=== PATIENT | female | born 1980 | race Caucasian/White ===

== ENCOUNTER 2018-05-18 09:50 | Inpatient (IN) | payer OTHER ==
[~2018-05-18] VITALS: Ht 172.7 cm; Wt 108.0 kg
[~2018-05-18 09:50] MED LIST: HUMIRA INJ
[2018-05-18 13:19] VITALS: BP 108/58; PULSE 66; TEMP 36.5; O2SAT 94
[2018-05-18 13:42] VITALS: BP 108/58; PULSE 66; TEMP 36.5; BMI 36.2
--- NOTE | 2018-05-18 14:03 | History and Physical ---
History & Physical Date & Time of Service: May 18, 2018 at 14:00 Chief Complaint: Pneumonia Primary Care Physician: Reji Galicia M.D. History of Present Illness This is a 37 yo female with PMH [facility], who presented to the ED complaining of persistent fever, cough, body aches. The px states on 5thm she went to [facility]. She was staying at one of the [facility]. While she was there she went to the [facility] and [facility]. She denies visiting caves, or any sick contacts. The patient states that on she began feeling ill., On Monday, she returned to [place]. Once she arivd home she had a temp of 104 degrees Fahrenheit. This was accompanied by body aches and a cough. She also noticed a fever blister on her lip. She went to an urgent care and was prescribed levaquin which she took 4 days worth with no improvement. Patient denies any tick bites. Patient continued to have body aches, sweats, fever, lower back pain and decided to go to the Hospital in [facility]. The she was started on Rocephin and Azithromycin in the ED. Patient was then admitted with vanc kinjal and corey. As they found left hilar lymphadenopathy. Patient is also on immunosuppressant Stelara for her Crohn's. Patient was transferred to [facility] for a possible bronch. Past Medical/Surgical History PAST MEDICAL HISTORY: 1. Active cigarette smoking. 2. Crohn's disease. 3. Morbid obesity 4. Questionable Lupus 5. "Apple core lesion" of right colon - apparently benign. PAST SURGICAL HISTORY: 1. Gastric Sleeve 2. Colon resection 3. A0. 4. Right knee arthrotomy with ACL / MCL repair. 5. T & A Family History The patient has one 13-year-old son with cerebral palsy, ADHD and autism. Her father in his mid 50's from CAD and an AK. Mother is 69 with DM and obesity. Two siblings are obese with DM. Social History Smoking Status: Former Smoker (quick 3 years ago) Smokeless Tobacco Use: No Alcohol Use: socially Drug Use: none Marital Status: Housing status: lives with family Occupational Status: unemployed Immunizations History of Influenza Vaccine: Unknown History of Tetanus Vaccine?: Unknown History of Pneumococcal: Unknown Allergies Coded Allergies: No Known Allergies (Unverified , 07/15/11) Home Medications Scheduled [Humira], 40 MG INJ EVERY OTHER WEEK Review of Systems Constitutional: + fever, + chills Eyes: No worsening of vision ENT: No hearing loss Respiratory: + cough, + shortness of breath, + dyspnea on exertion, + dyspnea at rest Cardiovascular: No chest pain Abdomen: No pain, No nausea Musculoskeletal: + muscle pain Genitourinary - Female: No dysuria Neurologic: No memory loss Psychiatric: No depression symptoms Endocrine: + fatigue Hematologic / Lymphatic: No abnormal bleeding/bruising Integumentary: No rash Allergic / Immunologic: No environmental allergies Physical Exam Vital Signs Date Time Temp Pulse Resp B/P (MAP) Pulse Ox O2 Delivery O2 Flow Rate FiO2 05/18/18 13:19 36.5 66 17 108/58 (75) 94 Room Air General Appearance: WD/WN, no apparent distress Head: normocephalic Eyes: normal inspection ENT: normal ENT inspection Neck: supple, no adenopathy Respiratory/Chest: chest non-tender, + accessory muscle use, + rhonchi (on right more than left.) Cardiovascular: regular rate, rhythm, no edema, no murmur Abdomen/GI: normal bowel sounds, non tender, soft Back: normal inspection Extremities/Musculoskelatal: normal inspection, no calf tenderness Neurologic/Psych: alert, oriented x 3 Skin: normal color Lymphatic: no adenopathy Impression Assessment and Plan Dypsnea and persistent fevers in a 37 yo female who failed outaptient treatment on levaquin, h/o immunosuprresnat likely secondary to Pneumonia Direct admission to med/surg for atypical community acquired pneumonia. Patient placed on triple antibiotic therapy. Vanco zosyn doxycycline Patient will have a bronch likely tomorrow or Monday. Patient does not appear to be in significant distress. Patient is admitted with precautions for TB. However, this appears unlikely Awaiting PPD results. Placed on 05/17/18 Ordered histoplasma antibodies, antibodies for coccidioidomycosis. Will call outside facility early next week for results as they are not out yet. will obtain random vanco level/ Consulted Dr. Schaefer who accepted patient for bronch. Awaiting consult. Blister on lip: Likely herpes labialis Placed on valacyclovir. h/o crohns disease on stelara h/o back pain On morphine and dilaudid. H/O SMOKING: dvt PROPH: hEPARIN. Advanced Directives Existing Advance Directive: No Existing Living Will: No Existing Power of Dressage Judge: No Existing Health Care Proxy: No Resuscitation Status VTE Prophylaxis Will order VTE Prophylaxis: Yes
[2018-05-18] MEDS ORDERED: VANCOMYCIN CONSULT ACTIVE PRN (14:15)
[2018-05-18] MEDS ORDERED: ACETAMINOPHEN 325 MG TAB PO PRN (14:15)
[2018-05-18] MEDS ORDERED: PATIENT'S HEIGHT AND/OR WEIGHT NEEDED SCH (14:20)
[2018-05-18] MEDS ORDERED: PIPERACILL/TAZOBAC IV 4.5 GM in D5W 100 ML IV STA (14:26)
[2018-05-18] MEDS ORDERED: PIPERACILL/TAZOBAC CONSULT ACTIVE PRN (14:30)
[2018-05-18 14:39] LABS: BASO % 0.1 %; BASO ABS # 0.01 K/uL (0-0.2); EOS ABS # 0.15 K/uL (0-0.5); HEMOGLOBIN 11.5 g/dL (12.0-16.0); IG# 0.14 K/uL (0.00-0.02); LYMPH % 17.6 %; LYMPH ABS # 1.31 K/uL (1.2-3.4); MEAN CELL VOLUME 84.7 fL (80-100); MEAN CORPUSCULAR HEMOGLOBIN 27.8 pg (25-34); MEAN CORPUSCULAR HGB CONC 32.9 g/dl (32-36); MEAN PLATELET VOLUME 8.9 fL (7.4-10.4); MONO % 5.8 %; MONO ABS # 0.43 K/uL (0.11-0.59); NEUT % 72.6 %; NEUT ABS # 5.39 K/uL (1.4-6.5); PLATELET COUNT 401 K/uL (130-400); RED CELL DISTRIBUTION WIDTH CV 16.2 % (11.5-14.5); RED CELL DISTRIBUTION WIDTH SD 50.1 fL (36.4-46.3); WHITE BLOOD COUNT 7.43 K/uL (4.8-10.8)
[2018-05-18 14:40] VITALS: BP 111/73; PULSE 58; TEMP 37.3; O2SAT 97
[2018-05-18] MEDS ORDERED: DOXYCYCLINE HYCLATE 100 MG CAP PO SCH (15:00)
[2018-05-18 15:22] LABS: ALBUMIN 2.3 gm/dl (3.4-5.0); CALCIUM 8.4 mg/dl (8.5-10.1); CREATININE 0.76 mg/dl (0.60-1.20); POTASSIUM 3.9 mmol/L (3.5-5.1); TOTAL PROTEIN 6.2 gm/dl (6.4-8.2)
[2018-05-18] MEDS ORDERED: VANCOMYCIN IV 2,000 MG in SODIUM CHLORIDE 0.9% 500ML 500 ML IV STA (15:23)
[2018-05-18] MEDS ORDERED: MoRPHine SULFATE CR 15 MG TAB (MS CONTIN) PO STA (15:26)
[2018-05-18] MEDS: DOXYCYCLINE HYCLATE 100 MG in DEXTROSE 5% 100ML IV SCH ×2 (15:27→21:31)
--- NOTE | 2018-05-18 15:37 | Pharmacy Progress Note ---
Pharmacy Abx Dose Short Note Date of Service May 18, 2018. Assessment & Plan A/P Direct admit from [facility]. Random vanco lvl 4.9mcg/mL. Will give a modified loading dose (2000mg IV X1 18.5mg/kg) due to habitus and existing vanco in the serum. Then start Vanco 1500mg (14mg/kg) q8 set to start @00 05/19. MRSA nares and PCT all ordered. Trough prior to Css ordered for 05/19@1530. Goal trough for pulmonary source 15-20mcg/mL Zosyn, appropriately dosed based on habitus and eCrCl>20cc/min Pharmacy will continue to follow and will adjust dose/frequency as necessary. Thank you.
[2018-05-18] MEDS ORDERED: NURSING VERBAL MED ORDER ONE (18:45)
[2018-05-18] MEDS: PIPERACILL/TAZOBAC IV 4.5 GM in D5W 100 ML IV SCH (19:51)
[2018-05-18] MEDS: PANTOprazole SOD 40 MG TAB PO SCH (19:55)
[2018-05-18] MEDS ORDERED: VANCOMYCIN IV 1,000 MG in SODIUM CHLORIDE 0.9% 250ML 250 ML IV SCH (21:00)
[2018-05-18] MEDS: MoRPHine SULFATE CR 15 MG TAB (MS CONTIN) PO SCH (21:24)
[2018-05-18] MEDS: HEPARIN SOD 5000 UNIT/0.5 ML CARP SQ SCH (21:26)
[2018-05-18] MEDS: ZOLPIDEM TARTRATE 10 MG TAB PO PRN (22:42)
--- NOTE | 2018-05-18 23:25 | SURGICAL CONSULTATION ---
DATE OF CONSULTATION: 05/18/2018 REASON FOR CONSULTATION: Mediastinal and hilar adenopathy and a left lower lobe pneumonia. HISTORY OF PRESENT ILLNESS: Marcela Dickerson is a 37-year-old female who smokes a pack of cigarettes a day who has a history of Crohn's disease. She is currently on Stelara. She was in [place] for about a week and started getting sick at the end of her stay. She was staying in a hotel. When she came back, she felt bad and had a cough and went to an urgent care and was placed on Levaquin and she was on Levaquin for about 5 days. She did not get better and was admitted to [facility] yesterday and I received a call from the hospitalist there as they were concerned about this patient, especially with her CT findings. Dr. Baudilio Noble kindly agreed to accept her in transfer. I am seeing her tonight after getting out of the operating room. The patient's was present at bedside. The patient has been smoking for most of her adult life, although she states she has quit for 3 years one time. She states that she feels much better today than she has felt in a few days. She denies sweats today. She does have a cough. Her weight has been stable. PAST MEDICAL HISTORY: 1. Active cigarette smoking. 2. Crohn's disease. 3. Morbid obesity 4. Questionable Lupus 5. "Apple core lesion" of right colon - apparently benign. PAST SURGICAL HISTORY: 1. Gastric Sleeve 2. Colon resection 3. A0. 4. Right knee arthrotomy with ACL / MCL repair. 5. T & A MEDICATIONS: 1. Ambien. 2. Protonix. 3. Humira ALLERGIES: No drug allergies. FAMILY MEDICAL HISTORY: The patient has one 13-year-old son with cerebral palsy , ADHD and autism. Her father in his mid 50's from CAD and an [place]. Mother is 69 with DM and obesity. Two siblings are obese with DM. REVIEW OF SYSTEMS: The patient states she was in her normal state of health until the last few days as listed in history of present illness. She is quite hungry and is eating now. She has had no GI or issues. She denies any visual or auditory symptoms. She has had no skin breakdown. She denies midsternal chest pain but she does have some lateral left-sided chest pain, which sounds pleuritic in nature, although it is mild. She has had no neurologic events such as amaurosis fugax, transient ischemic attacks. She has had no seizures. PHYSICAL EXAMINATION: GENERAL: This is a well-developed, well-nourished, healthy-appearing female who stands 5 feet 8 inches tall and weighs 238 pounds. HEENT: Her extraocular movements are intact. Pupils are equal, round, and reactive. Sclerae are pale but anicteric. She has no nasolabial flattening. Her tongue is midline. She has no oral mucosal lesions. NECK: Supple. I do not detect any supraclavicular, cervical, or axillary adenopathy. She has some mild end expiratory wheezing, worse on the right than the left and has rhonchi, which I think are actually worse on the right than the left. She has a few rales in the left base. HEART: She has a regular rate and rhythm of her heart does not have a rub or murmur. ABDOMEN: Soft, nontender. EXTREMITIES: She has good peripheral pulses. No peripheral edema. No joint effusions. NEUROLOGIC: She is intact. DATA: Her electrolytes looked quite good. Her albumin is down to 2.3. Her procalcitonin is 0.51, which is just above high normal. Her white count is only 7430 with hemoglobin of 11.5. I reviewed her CT scan, it is impressive. She has marked adenopathy, which does not appear to be simply reactive. In addition, she has a dense infiltrate in her left lower lobe. She has a very small left pleural effusion. She also has a few very small areas of infiltrates at the right lung. ASSESSMENT AND PLAN: Right lower lobe pneumonia in a patient who was immunocompromised secondary to medication. Her visit to [place] is a bit concerning. She has been covered for atypical bacteria; however, I believe I would have infectious disease see this patient. I am going to see how she looks over the weekend and I may offer her an endobronchial ultrasound with a bronchoscopy on Monday. [facility]OSPITALMickey
[2018-05-18] MEDS: VANCOMYCIN IV 1,500 MG in SODIUM CHLORIDE 0.9% 500ML 500 ML IV SCH (23:35)
[2018-05-18 23:47] VITALS: O2SAT 97
[2018-05-18 23:59] VITALS: BP 111/77; PULSE 59; TEMP 37.1; O2SAT 95
[2018-05-19] MEDS: PIPERACILL/TAZOBAC IV 4.5 GM in D5W 100 ML IV SCH ×3 (03:55→20:38)
[2018-05-19] MEDS: HEPARIN SOD 5000 UNIT/0.5 ML CARP SQ SCH ×3 (06:00→21:57)
[2018-05-19 07:12] VITALS: BP 115/76; PULSE 64; TEMP 37; O2SAT 92
[2018-05-19 07:47] LABS: CREATININE 0.91 mg/dl (0.60-1.20)
[2018-05-19] MEDS: PANTOprazole SOD 40 MG TAB PO SCH ×2 (08:44→20:38)
[2018-05-19] MEDS: MoRPHine SULFATE CR 15 MG TAB (MS CONTIN) PO SCH ×2 (08:44→20:38)
[2018-05-19] MEDS: SERTRALINE HCL 100 MG TAB PO SCH (08:44)
[2018-05-19] MEDS: VANCOMYCIN IV 1,500 MG in SODIUM CHLORIDE 0.9% 500ML 500 ML IV SCH ×3 (08:45→21:52)
[2018-05-19] MEDS: DOXYCYCLINE HYCLATE 100 MG in DEXTROSE 5% 100ML IV SCH ×2 (10:17→21:52)
[2018-05-19 10:18] VITALS: Ht 172.7 cm; Wt 108.0 kg
--- NOTE | 2018-05-19 10:37 | SURGERY PROGRESS NOTE ---
DATE: 05/19/2018 Ms. Dickerson was seen today on 05/19/2018. She is a 37-year-old female who takes Humira for her Crohn's disease. She recently had trip to [place] and came back with a significant pneumonia. What concerns me more is the size of the lymph nodes in her chest. I do not think these are purely reactive nodes, especially in the subcarinal area. I believe that a fiberoptic bronchoscopy as well as an endobronchial ultrasound with biopsy is in order. Clinically, she has improved over the last 48 hours. She is coughing, but not much. She has had no hemoptysis. She is hungry. She has no problems with her appetite. Overall, she is in good spirits and feels that she has improved. We had a long talk with the endobronchial ultrasound and a regular bronchoscopy, which we will do under anesthesia on 05/21/2018.
[2018-05-19] MEDS: HYDROmorphone HCL 2 MG TAB PO PRN (13:39)
[2018-05-19 15:28] VITALS: BP 113/78; PULSE 60; TEMP 37.2; O2SAT 96
[2018-05-19] MEDS ORDERED: VANCOMYCIN TROUGH ONE (15:30)
--- NOTE | 2018-05-19 16:29 | Pharmacy Progress Note ---
Pharmacy Antibiotic Prog Note Date of Service May 19, 2018. Subjective The patient is currently receiving vancomycin 1500 mg iv q 8 hours. The patient is currently on day # 2 of IV therapy Objective Height (Feet): 5 Height (Inches): 8.00 Weight (Kilograms): 108.000 Levels: Item Value Date Time Vancomycin Level Trough 26.5 mcg/ml 05/19/18 1508 Lab Results (24hrs): Test 05/19/18 06:28 05/19/18 15:08 Creatinine 0.91 mg/dl (0.60-1.20) Est Creatinine Clear Calc Drug Dose 106.8 ml/min Estimated GFR () 92.1 Estimated GFR (Non- 79.5 Procalcitonin 0.43 ng/ml (0-0.5) Vancomycin Level Trough 26.5 mcg/ml (SEE COMMENT) Assessment & Plan Patient currently on vancomycin for possible pneumonia. Transferred from outside hospital. ID is consulted to follow the patient. Plan for possible bronch on Monday. Vancomycin: * Trough level this afternoon came back supratherapeutic at ~26 mcg/ml (goal 15- 20 mcg/ml for pneumonia) * Notified nurse to take down 1600 dose (had only been running for a couple mins ) * Will adjust to vancomycin 1500 mg iv q 12 hrs to target a lower trough ~15-20 mcg/ml * Will plan to restart vancomycin for later this evening when estimated level closer to ~15 mcg/ml * Estimated kinetics based upon level: t1/2~9 hrs, ke~0.08 hr-1, CrCl ~106 Zosyn: * 4.5 gm iv q 8 hrs - no change needed (CrCl >20 ml/min, BMI >35 kg/m2) Pharmacy will continue to follow and will adjust dose/frequency as necessary. Thank you. Pharmacy will continue to follow and will adjust dose/frequency as necessary. Thank you
[2018-05-19] MEDS ORDERED: FLUCONAZOLE 50 MG TAB PO ONE (17:30)
[2018-05-19] MEDS: ZOLPIDEM TARTRATE 10 MG TAB PO PRN (22:42)
[2018-05-19 22:44] VITALS: BP 124/82; PULSE 62; TEMP 36.7; O2SAT 99
--- NOTE | 2018-05-19 22:57 | Progress Note ---
Subjective Date of Service: May 19, 2018. Subjective Pt evaluation today including: conversation w/ patient, physical exam 37 yo female reports feeling better today as compared to yesterday. Patient reports she has been coughing up sputum and she states it feels like her lungs are breaking up mucus. Patient knows that she is scheduled for a bronch on Monday. Patient also complains of vaginal pruritus which started today. Review of Systems Constitutional: No fever Eyes: No worsening of vision ENT: No hearing loss Respiratory: + cough, + sputum Cardiac: No chest pain Abdomen: No pain Musculoskeletal: No joint pain Neurologic: No memory loss Psychiatric: No depression symptoms Heme: No abnormal bleeding/bruising Endo: + fatigue Skin: No rash All Other Systems: Reviewed and Negative Objective Vital Signs Date Time Temp Pulse Resp B/P (MAP) Pulse Ox O2 Delivery O2 Flow Rate FiO2 05/19/18 22:44 36.7 62 18 124/82 (96) 99 Room Air 05/19/18 16:00 Room Air 05/19/18 15:28 37.2 60 18 113/78 (90) 96 Room Air 05/19/18 08:30 Room Air 05/19/18 07:12 37.0 64 16 115/76 (89) 92 05/18/18 23:59 37.1 59 18 111/77 (88) 95 Room Air 05/18/18 23:47 97 Room Air Physical Exam Comments: General Appearance: WD/WN, no apparent distress Head: normocephalic Eyes: normal inspection ENT: normal ENT inspection Neck: supple, no adenopathy Respiratory/Chest: chest non-tender, + accessory muscle use, + rhonchi (on right more than left.) Cardiovascular: regular rate, rhythm, no edema, no murmur Abdomen/GI: normal bowel sounds, non tender, soft Back: normal inspection Extremities/Musculoskelatal: normal inspection, no calf tenderness Neurologic/Psych: alert, oriented x 3 Skin: normal color Lymphatic: no adenopathy Laboratory Results Last 24 Hours Test 05/19/18 06:28 05/19/18 15:08 Creatinine 0.91 mg/dl Est Creatinine Clear Calc Drug Dose 106.8 ml/min Estimated GFR () 92.1 Estimated GFR (Non- 79.5 Procalcitonin 0.43 ng/ml Vancomycin Level Trough 26.5 mcg/ml Assessment and Plan Dyspnea and persistent fevers in a 37 yo female who failed outaptient treatment on levaquin, h/o immunosuprresnat likely secondary to Pneumonia Direct admission to med/surg for atypical community acquired pneumonia. Patient clinically looks better, lungs still sound coarse. Patient placed on triple antibiotic therapy. Vanco zosyn doxycycline (day 3) started by outside facility Patient will have a bronch likely tomorrow or Monday. Patient does not appear to be in significant distress. Patient is admitted with precautions for TB. However, this appears unlikely Awaiting PPD results, so far it is negative. If remains negative tomorrow will stop airborne precautions. Placed on 05/17/18 Ordered histoplasma antibodies, antibodies for coccidioidomycosis. Will call outside facility early next week for results as they are not out yet. Bronch scheduled for monday. Chest Lymphadenopathy noted on imaging will need to obtain biopsies Blister on lip: Likely herpes labialis Placed on valacyclovir. h/o crohns disease on stelara h/o back pain On morphine and dilaudid. H/O SMOKING: quit years ago. Vaginal pruritus ordered one dose of fluconazole 150 mg likely secondary to antibiotic use. Continued [facility] stay due to: multiple IV medications needed Discharge planning: home
[2018-05-20] VITALS (8 sets, daily range): BP systolic 103–119; BP diastolic 62–80; PULSE 54–84; TEMP 36.7–37.1; O2SAT 96–99
[2018-05-20] MEDS: PIPERACILL/TAZOBAC IV 4.5 GM in D5W 100 ML IV SCH ×3 (05:07→20:03)
[2018-05-20] MEDS: HEPARIN SOD 5000 UNIT/0.5 ML CARP SQ SCH ×4 (06:19→21:53)
--- NOTE | 2018-05-20 07:49 | Progress Note ---
Progress Note Date of Service May 20, 2018. Progress Note ID Consult Dictated #[id number] A/P: 1. Pna/lymphadenopathy -Continue IV abx for now -For bronch in am, please obtain routine, fungal, AFB -IGRA negative as outpt, ppd 0mm induration this am, can d/c airborne isolation -Will follow, thank you
[2018-05-20 07:52] LABS: CREATININE 0.88 mg/dl (0.60-1.20)
--- NOTE | 2018-05-20 08:05 | INFECT. DISEASE CONSULTATION ---
DATE OF CONSULTATION: 05/20/2018 HISTORY OF PRESENT ILLNESS: This is a 37-year-old female who was admitted to the hospital after she had worsening cough with occasional hemoptysis. She was recently seen at an urgent care center and she was given a course of Levaquin. She completed 5 days of this, but she did not feel any better. She initially presented to [facility] where she underwent a CAT scan, which per the patient showed lymphadenopathy. She was subsequently transferred due to immunosuppression as she is on Stelara for Crohn's disease. This is managed in [place]. She did have an interferon prior to starting Stelara, and this was negative. She also had a PPD placed here 3 days ago, and it is measured by me today and is 0 mm in duration. She was placed in airborne precautions, no additional TB workup was obtained here. She states that her cough is better. She denies any pleuritic chest pain. She denies ever having any fevers or chills associated with this. Of note, she had previously been in [place] and started to feel ill toward the end of her trip there. She denies any abdominal pain, nausea, vomiting, or diarrhea. She states her Crohn's is under a relatively good control. Her remaining review of systems is reviewed and unremarkable. PAST MEDICAL HISTORY: Significant for Crohn's disease, on Stelara, obesity, history of positive JENNIFER 15 years ago with no additional workup for lupus. PAST SURGICAL HISTORY: Significant for gastric sleeve, colon resection, right knee surgery, tonsillectomy, adenoidectomy. ALLERGIES: She has no known allergies. FAMILY HISTORY: Noncontributory. SOCIAL HISTORY: Significant for daily cigarette use for several years. She denies any alcohol or drug use. She recently had traveled to [place]. PHYSICAL EXAMINATION: VITAL SIGNS: She is afebrile, pulse 54, respiratory rate 18, blood pressure 119/80, oxygen saturation is 96% on room air. GENERAL: She is awake, alert, and oriented x3. She is in no acute distress. HEENT: Mucous membranes are moist. Extraocular muscles are intact. CARDIOVASCULAR: Heart is regular. RESPIRATORY: Lungs are clear bilaterally. GASTROINTESTINAL: Abdomen is soft, nontender, and nondistended. EXTREMITIES: There is no lower extremity edema. SKIN: Without rash. CURRENT MEDICATIONS: Vancomycin, Zoloft, subcu heparin, morphine, Valtrex, Protonix, Zosyn, Ambien, doxycycline, Dilaudid, Tylenol. She is noted to have herpetic lesions on the upper lip which are nontender. LABORATORY STUDIES: CBC: On the 05/18/2018, white blood cell count 7.4, hemoglobin 11.5, platelets 401. Chemistry panel: Sodium 143, potassium 3.9, chloride 109, bicarbonate 25, BUN 10, creatinine 0.7, glucose 78. LFTs are within normal limits. A procalcitonin is negative. MICROBIOLOGY: There are no cultures to review here. IMAGING: There is no imaging to review here. ASSESSMENT AND PLAN: Pneumonia and lymphadenopathy, on anti-Crohn's medication. She does not have any risk factors for TB, and she had a negative PPD here and also had a negative interferon. Her airborne precautions can be removed. She is scheduled for bronchoscopy tomorrow. Please obtain routine fungal and AFB cultures. We will follow along with you. Thank you for this consultation.
[2018-05-20] MEDS: PANTOprazole SOD 40 MG TAB PO SCH ×2 (08:49→20:06)
[2018-05-20] MEDS: SERTRALINE HCL 100 MG TAB PO SCH (08:49)
[2018-05-20] MEDS: MoRPHine SULFATE CR 15 MG TAB (MS CONTIN) PO SCH ×2 (08:52→20:11)
[2018-05-20] MEDS: DOXYCYCLINE HYCLATE 100 MG in DEXTROSE 5% 100ML IV SCH ×2 (09:50→21:52)
[2018-05-20] MEDS: VANCOMYCIN IV 1,500 MG in SODIUM CHLORIDE 0.9% 500ML 500 ML IV SCH ×2 (09:50→21:52)
--- NOTE | 2018-05-20 10:23 | SURGERY PROGRESS NOTE ---
DATE: 05/20/2018 Ms. Dickerson was seen today on 05/20/2018. She is better but still coughing. Dr. Bangura has seen her and is in agreement with the bronchoscopy tomorrow. We are going to proceed with endobronchial ultrasound with biopsy and a fiberoptic bronchoscopy tomorrow. She and I had a long discussion about the risks and benefits and she is eager to have this done. I have asked Dr. Bassett to see her from a pulmonary standpoint.
[2018-05-20] MEDS: ALBUT/IPRATROP 3MG/0.5MG NEB 3 ML VIAL INH SCH ×3 (11:38→18:53)
[2018-05-20] MEDS: HYDROmorphone HCL 2 MG TAB PO PRN (12:44)
[2018-05-20] MEDS ORDERED: NURSING VERBAL MED ORDER ONE (13:15)
[2018-05-20] MEDS ORDERED: FLUCONAZOLE 50 MG TAB PO ONE (14:30)
--- NOTE | 2018-05-20 21:48 | Progress Note ---
Subjective Date of Service: May 20, 2018. Subjective Patient reports mild improvement in her shortness of breath and cough. No new symptoms. She continues to have vaginal pruritus. Review of Systems Constitutional: No fever Eyes: No worsening of vision ENT: No hearing loss Respiratory: + cough, + sputum Cardiac: No chest pain Abdomen: No pain Musculoskeletal: No joint pain Neurologic: No memory loss Psychiatric: No depression symptoms Heme: No abnormal bleeding/bruising Endo: + fatigue Skin: No rash All Other Systems: Reviewed and Negative Objective Vital Signs Date Time Temp Pulse Resp B/P (MAP) Pulse Ox O2 Delivery O2 Flow Rate FiO2 05/20/18 20:43 98 Room Air 05/20/18 18:53 60 16 98 Room Air 05/20/18 16:00 Room Air 05/20/18 15:49 37.1 68 18 118/77 (91) 97 Room Air 05/20/18 15:03 82 18 98 Room Air 05/20/18 11:09 84 18 96 Room Air 05/20/18 08:45 Room Air 05/20/18 06:55 36.8 54 18 119/80 (93) 96 Room Air 05/20/18 00:12 99 Room Air 05/19/18 22:44 36.7 62 18 124/82 (96) 99 Room Air Physical Exam Comments: General Appearance: WD/WN, no apparent distress Head: normocephalic Eyes: normal inspection ENT: normal ENT inspection Neck: supple, no adenopathy Respiratory/Chest: chest non-tender, + accessory muscle use, + rhonchi (on right more than left.). Mildly improved today. Cardiovascular: regular rate, rhythm, no edema, no murmur Abdomen/GI: normal bowel sounds, non tender, soft Back: normal inspection Extremities/Musculoskelatal: normal inspection, no calf tenderness Neurologic/Psych: alert, oriented x 3 Skin: normal color Lymphatic: no adenopathy Laboratory Results Last 24 Hours Test 05/20/18 00:00 05/20/18 07:14 Creatinine 0.88 mg/dl Est Creatinine Clear Calc Drug Dose 110.5 ml/min Estimated GFR () 95.9 Estimated GFR (Non- 82.8 Assessment and Plan Dyspnea and persistent fevers in a 37 yo female who failed outaptient treatment on levaquin, h/o immunosuprresnat likely secondary to Pneumonia Direct admission to med/surg for atypical community acquired pneumonia. Patient clinically looks better, lungs still sound coarse. Patient placed on triple antibiotic therapy. Vanco zosyn doxycycline (day 4) started by outside facility Patient will have a bronch Monday. Patient does not appear to be in significant distress. Patient is admitted with precautions for TB. However, this appears unlikely PPD is negative. will stop airborne precautions. Ordered histoplasma antibodies, antibodies for coccidioidomycosis in outside facility. Will call outside facility early next week for results of above testing as they are not out yet. Bronch scheduled for monday. Chest Lymphadenopathy noted on imaging (from outside facility will need to obtain biopsies Blister on lip: Likely herpes labialis Placed on valacyclovir. h/o crohns disease on stelara h/o back pain On morphine and dilaudid. H/O SMOKING: quit years ago. Vaginal pruritus ordered one dose of fluconazole 150 mg yesterday. will order one more dose today and monitor likely secondary to antibiotic use. NPO after midnight.
[2018-05-20] MEDS: ZOLPIDEM TARTRATE 10 MG TAB PO PRN (21:56)
[2018-05-21] VITALS (8 sets, daily range): BP systolic 94–132; BP diastolic 52–85; PULSE 54–68; TEMP 36.7–37.4; O2SAT 95–98
[2018-05-21] MEDS: PIPERACILL/TAZOBAC IV 4.5 GM in D5W 100 ML IV SCH ×3 (05:11→19:50)
[2018-05-21] MEDS: HEPARIN SOD 5000 UNIT/0.5 ML CARP SQ SCH ×3 (05:14→22:11)
[2018-05-21] MEDS: ALBUT/IPRATROP 3MG/0.5MG NEB 3 ML VIAL INH SCH ×4 (07:37→18:55)
[2018-05-21] MEDS: PANTOprazole SOD 40 MG TAB PO SCH ×2 (08:00→19:49)
--- NOTE | 2018-05-21 08:06 | PULMONARY CONSULTATION ---
DATE OF CONSULTATION: 05/20/2018 TIME: 11:10 a.m. HISTORY OF PRESENT ILLNESS: The patient was seen in room 400. This is a 37-year-old female who went to [place] on 05/06/2018. No one else was sick. She states her flight home was extremely uncomfortable. She did develop some pain in the left lower chest area. She went to an urgent care soon after getting home. She ultimately was found to have a left lower lobe pneumonia well as a left hilar node measuring 2.4 cm. She denies being in any soil or dirt while being out in [facility], but there was construction side from a recently torn down [employer]. Patient has had hemoptysis on a daily basis. The cough is overall getting less. The pain has resolved. She was transferred to [facility] on 05/18/2018. She has been receiving vancomycin and Zosyn. She was on Humira. 4 months ago, she was changed to Stelara. She has not had any significant shortness of breath for a few days. She had mild shortness of breath initially. Her sense of well being is much better. PAST MEDICAL HISTORY: 1. Crohn's disease. 2. Obesity. 3. Positive JENNIFER. 4. Chronic back pain. PAST SURGICAL HISTORY: 1. Gastric sleeve surgery in 2012 with resultant loss of 136 pounds. 2. Colon resection for a benign lesion. 3. Right knee surgery. 4. T and A. SOCIAL HISTORY: Tobacco: The patient has smoked since age 13. She is currently smoking 1 pack per day. She had quit smoking for 3 years. Alcohol use is rare. FAMILY HISTORY: Father in his 50s, coronary artery disease, and [place]. Mother living, age 69, diabetes and obesity. Son, age 13, has cerebral palsy, ADHD, autism. ALLERGIES: No known allergies. HOME MEDICATIONS: Stelara. REVIEW OF SYSTEMS: Negative except for the above-mentioned complaints. PHYSICAL EXAMINATION: GENERAL: The patient is a 37-year-old female who was cooperative, alert, and oriented. She was in no distress. VITAL SIGNS: Current temperature is 36.8. HEENT: Pupils were reactive to light. Nares were clear. Mouth exam shows what appears to be some white mucus in the posterior pharynx that may be from her sinuses. Palpation of the neck reveals no lymph nodes. She has herpetic lesions on the lips. RESPIRATORY: The chest was of normal expansion. Lung guzman revealed rhonchi bilaterally but greater on the left than the right. These were much more than expected considering how comfortable she appeared. CARDIOVASCULAR: The cardiac rate was 54 per minute. Blood pressure 119/80. GASTROINTESTINAL: The abdomen is soft. Bowel sounds were normal. There was no tenderness to palpation, masses, or organomegaly. A large scar was present from prior surgery. EXTREMITIES: Showed no cyanosis, clubbing, or edema. LABORATORY DATA: White blood cell count is 7.43, hemoglobin 11.5, platelets 401,000. INR was 1.0. Electrolytes showed sodium 143, potassium 3.9, chloride 109, bicarbonate 25, BUN was 7, with creatinine 0.76. Calcium was 8.4. AST and ALT were both low. Albumin was 2.3 with total protein 6.2. Procalcitonin was elevated at 0.51. The elevation is mild. Repeat was 0.43. IMPRESSION: 1. Left lower lobe pneumonia, immunosuppressed host. 2. Left hilar adenopathy. 3. Hemoptysis. 4. History of cigarette smoking. COMMENTS/RECOMMENDATIONS: The patient is clinically much improved. She did have PPDs done that were negative. I agree with her current treatment. I would add nebulizer treatments because of the rhonchi. This may help her bring up secretions as well. I would check a Legionella antigen. She did have GI symptoms at the onset of her illness. She is for bronchoscopy tomorrow because of the hemoptysis and the left hilar adenopathy. If all is negative, she should have a followup CAT scan in approximately 2 months to be certain that the adenopathy and the infiltrates have all resolved. Thank you for asking me to assist in her care. NUZHAT
--- NOTE | 2018-05-21 08:30 | Progress Note ---
Subjective Date of Service: May 21, 2018. Subjective pt feels dramatically improved she is for bronchoscopy 05/21, ID wants to keep antibiotics the same until after bronchoscopy Review of Systems Constitutional: No fever, No chills, No weakness, No fatigue Respiratory: + cough, + sputum, + shortness of breath, + dyspnea on exertion Cardiac: No chest pain, No edema Abdomen: No pain, No nausea, No vomiting, No diarrhea Musculoskeletal: No joint pain, No muscle pain Neurologic: No memory loss, No weakness Psychiatric: No depression symptoms, No anhedonism, No anxiety Objective Vital Signs Date Time Temp Pulse Resp B/P (MAP) Pulse Ox O2 Delivery O2 Flow Rate FiO2 05/21/18 07:00 36.9 57 20 94/52 (66) 96 Room Air 05/20/18 22:56 36.7 71 18 103/62 (76) 97 Room Air 05/20/18 20:43 98 Room Air 05/20/18 18:53 60 16 98 Room Air 05/20/18 16:00 Room Air 05/20/18 15:49 37.1 68 18 118/77 (91) 97 Room Air 05/20/18 15:03 82 18 98 Room Air 05/20/18 11:09 84 18 96 Room Air 05/20/18 08:45 Room Air Physical Exam General Appearance: WD/WN, + mild distress Eyes: normal inspection, PERRL, EOMI, sclerae normal Respiratory/Chest: chest non-tender, + decreased breath sounds, + rhonchi Cardiovascular: regular rate, rhythm, no murmur Abdomen: normal bowel sounds, non tender, soft Extremities: no pedal edema, no calf tenderness Neurologic/Psychiatric: alert, oriented x 3 Skin: normal color, warm/dry, no rash Laboratory Results Last 24 Hours Test 05/21/18 04:44 Assessment and Plan Dyspnea and persistent fevers in a 37 yo female who failed outaptient treatment on levaquin, h/o immunosuppressant treatment of Crohns, atypical community acquired pneumonia. Bronchoscopy 05/21 Patient placed on triple antibiotic therapy. Vanco zosyn doxycycline started by outside facility Patient was admitted with precautions for TB. PPD is negative.-->will stopped airborne precautions. Ordered histoplasma antibodies, antibodies for coccidioidomycosis in outside facility. 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 h/o crohns disease, clinically no symptoms on stelara h/o back pain on morphine and dilaudid. H/O SMOKING:quit years ago. Vaginal pruritus fluconazole 150 Heparin for DVT prevention Continued [facility] stay due to: multiple IV medications needed Discharge planning: home
[2018-05-21] MEDS: DOXYCYCLINE HYCLATE 100 MG in DEXTROSE 5% 100ML IV SCH (09:18)
[2018-05-21] MEDS ORDERED: VANCOMYCIN TROUGH ONE (09:30)
[2018-05-21] MEDS: VANCOMYCIN IV 1,500 MG in SODIUM CHLORIDE 0.9% 500ML 500 ML IV SCH (09:34)
--- NOTE | 2018-05-21 09:40 | Progress Note ---
Subjective Date of Service: May 21, 2018. Subjective pt remains on emperic abx for pna, sputum pending. afebrile. tolerating abx. for bronch today. Objective Vital Signs Date Time Temp Pulse Resp B/P (MAP) Pulse Ox O2 Delivery O2 Flow Rate FiO2 05/21/18 07:00 36.9 57 20 94/52 (66) 96 Room Air 05/20/18 22:56 36.7 71 18 103/62 (76) 97 Room Air 05/20/18 20:43 98 Room Air 05/20/18 18:53 60 16 98 Room Air 05/20/18 16:00 Room Air 05/20/18 15:49 37.1 68 18 118/77 (91) 97 Room Air 05/20/18 15:03 82 18 98 Room Air 05/20/18 11:09 84 18 96 Room Air Laboratory Results Item Value Date Time Gram Stain - Final Resulted 05/20/18 1300 Sputum Expectorated Sputum Last 24 Hours Test 05/21/18 09:27 Assessment and Plan (1) Community acquired pneumonia Assessment & Plan: continue abx, await bronch findings. follow cultures Continued [facility] stay due to: multiple IV medications needed Discharge planning: home
[2018-05-21 09:42] LABS: HEMATOCRIT 35.2 % (37-47); HEMOGLOBIN 11.2 g/dL (12.0-16.0); MEAN CORPUSCULAR HEMOGLOBIN 27.1 pg (25-34); MEAN CORPUSCULAR HGB CONC 31.8 g/dl (32-36); MEAN PLATELET VOLUME 8.7 fL (7.4-10.4); PLATELET COUNT 404 K/uL (130-400); RED CELL DISTRIBUTION WIDTH CV 16.2 % (11.5-14.5); RED CELL DISTRIBUTION WIDTH SD 50.5 fL (36.4-46.3); WHITE BLOOD COUNT 8.24 K/uL (4.8-10.8)
[2018-05-21 10:19] LABS: CREATININE 0.96 mg/dl (0.60-1.20)
--- NOTE | 2018-05-21 10:26 | Clinical Documentation Query ---
CLINICAL DOCUMENTATION QUERY Dr. LAWSON, There is a discrepancy noted in the clinical documentation on the initial surgical consult. Documentation reflects the patient has LLL pneumonia in the Reason For Consultation but subsequently notes pt to have RLL pneumonia in the Assessment and Plan. Please clarify location of pneumonia and document the diagnosis in the progress notes. In your clinical opinion is this patient being managed for: (X ) LLL Pneumonia ( ) RLL Pneumonia ( ) Bilateral Pneumonia ( ) Not Agree ( ) Other explanation of clinical findings (No explanation is considered a No Response) ( ) Unable to determine ( ) Need to Discuss (Phone CDS or qliq) (No discussion is considered a No Response) Please clarify and document your clinical opinion in the progress notes and discharge summary. Terms such as "probable", "suspected", "likely", "questionable", "possible", or "still to be ruled out" are acceptable. IF IN AGREEMENT, YOU MUST DOCUMENT ABOVE DIAGNOSTIC STATEMENT IN DAILY PROGRESS NOTES AND DISCHARGE SUMMARY. This document is not part of the patient's record. Thank You, Disha Ardon, ALEKS [phone]
--- NOTE | 2018-05-21 10:27 | Pharmacy Progress Note ---
Pharmacy Abx Dose Short Note Date of Service May 21, 2018. Assessment & Plan Assessment 37 year old female receiving vancomycin/zosyn/doxy for treatment of RLL penumonia Day # 5 of antimicrobial therapy. Plan Vancomycin * Trough level of 21.3 mcg/mL is slightly supratherapeutic * Change to 1250 mg IV every 12 hours * Goal trough level 15-20 mcg/mL * Trough ordered for 05/23 @ 0930 Pharmacy will continue to follow and will adjust dose/frequency as necessary. Thank you.
[2018-05-21] MEDS ORDERED: FENTANYL CITRATE INJ 50 MCG/1 ML 2 ML VIAL ONE ×2 (12:52→15:03)
[2018-05-21] MEDS ORDERED: DEXAMETHASONE SOD INJ 4 MG/ML VIAL ONE (12:52)
[2018-05-21] MEDS ORDERED: NEOSTIGMINE METHYLSULFATE 5 MG/5 ML SYR ONE (12:52)
[2018-05-21] MEDS ORDERED: MIDAZOLAM HCL 1 MG/ML 2ML VIAL ONE (12:52)
[2018-05-21] MEDS ORDERED: ONDANSETRON INJ 2 MG/ML 2 ML VIAL ONE (12:52)
[2018-05-21] MEDS ORDERED: GLYCOPYRROLATE INJ 0.2 MG/ML VIAL ONE (12:52)
[2018-05-21] MEDS ORDERED: LIDOCAINE HCL 2% 2 ML VIAL (20MG/ML) ONE (12:52)
[2018-05-21] MEDS ORDERED: PROPOFOL IV EMULSION 10 MG/ML 20 ML VIAL ONE (12:52)
[2018-05-21] MEDS ORDERED: SUCCINYLCHOLINE CHLORIDE 20 MG/ML 10 ML VIAL IV ONE (12:58)
--- NOTE | 2018-05-21 13:18 | History & Physical Bridge Note ---
H&P Re-Evaluation Bridge Note: I have examined the patient, reviewed the History & Physical and in the interval since the performance of the History & Physical I have noted the following changes of clinical significance: No changes noted
--- NOTE | 2018-05-21 14:59 | DIAGNOSTIC IMAGING REPORT ---
SINGLE VIEW CHEST CLINICAL HISTORY: Status post endobronchial ultrasound. FINDINGS: An AP, portable, upright chest radiograph is compared to study dated 05/12/2018 and correlated with chest CT dated 05/17/2018. The examination is degraded by portable technique and patient rotation. The heart is top normal for projection. There is left basilar consolidation and a small left pleural effusion. The right lung appears clear. No pneumothorax is seen. The bony thorax is grossly intact. IMPRESSION: 1. No pneumothorax is identified post procedure. 2. There is left basilar consolidation and a small left pleural effusion, similar in appearance to previous. Electronically signed by: Darío Puentes M.D. 05/21/2018 2:58 PM Dictated Date/Time: 05/21/2018 2:56 PM
[2018-05-21] MEDS ORDERED: ONDANSETRON INJ 2 MG/ML 2 ML VIAL IV PRN (15:00)
[2018-05-21] MEDS ORDERED: EpHEDrine SULFATE INJ 50 MG/ML AMP IV PRN (15:00)
[2018-05-21] MEDS ORDERED: FENTANYL CITRATE INJ 50 MCG/1 ML 2 ML VIAL IV PRN (15:00)
[2018-05-21] MEDS ORDERED: NALOXONE HCL 0.4 MG/1 ML VIAL/CARP IV PRN (15:00)
[2018-05-21] MEDS ORDERED: PROMETHAZINE HCL INJ 12.5 MG in SODIUM CHLORIDE 0.9% 50ML 50 ML IV PRN (15:00)
[2018-05-21] MEDS ORDERED: FLUMAZENIL 0.1 MG/1 ML 10 ML VIAL IV PRN (15:00)
[2018-05-21] MEDS ORDERED: ATROPINE SULFATE 0.1 MG/ML 5ML SYR IV PRN (15:00)
--- NOTE | 2018-05-21 15:32 | Anesthesiology Progress Note ---
Anesthesia Post Op Note Date & Time May 21, 2018 at 15:32 Vital Signs Pain Intensity: 5.0 Vital Signs Past 12 Hours Date Time Temp Pulse Resp B/P (MAP) Pulse Ox O2 Delivery O2 Flow Rate FiO2 05/21/18 15:15 57 18 128/66 97 Room Air 05/21/18 15:05 52 18 120/59 96 Room Air 05/21/18 14:55 56 18 132/77 96 Nasal Cannula 2 05/21/18 14:45 62 17 128/82 99 Nasal Cannula 2 05/21/18 14:37 36.1 66 24 126/76 96 Oxymask 10 05/21/18 12:50 36.8 53 18 133/81 (98) 97 Room Air 05/21/18 11:06 61 16 98 Room Air 05/21/18 10:08 Room Air 05/21/18 07:00 36.9 57 20 94/52 (66) 96 Room Air Notes Mental Status: alert / awake / arousable, participated in evaluation Pt Amnestic to Procedure: Yes Nausea / Vomiting: adequately controlled Pain: adequately controlled Airway Patency, RR, SpO2: stable & adequate BP & HR: stable & adequate Hydration State: stable & adequate Anesthetic Complications: no major complications apparent
[2018-05-21] MEDS: MoRPHine SULFATE CR 15 MG TAB (MS CONTIN) PO SCH ×2 (18:41→19:27)
[2018-05-21] MEDS: SERTRALINE HCL 100 MG TAB PO SCH (18:42)
[2018-05-21] MEDS: HYDROmorphone HCL 2 MG TAB PO PRN (19:55)
[2018-05-21] MEDS ORDERED: LORAZEPAM 2 MG/ML 1 ML VIAL IV STA (20:54)
--- NOTE | 2018-05-21 21:20 | OPERATIVE REPORT ---
DATE OF OPERATION: 05/21/2018 PREOPERATIVE DIAGNOSES: 1. Persistent left lower lobe pneumonia. 2. Mediastinal adenopathy. POSTOPERATIVE DIAGNOSES: 1. Persistent left lower lobe pneumonia. 2. Mediastinal adenopathy. PROCEDURE: 1. Fiberoptic bronchoscopy with washings. 2. Endobronchial ultrasound with biopsy x3 lymph node station. SURGEON: Renato Schaefer MD DIRECT CARE PROFESSIONAL: Jean Tang. ANESTHESIA: General anesthesia with endotracheal intubation. INCATIONS FOR PROCEDURE AND FINDINGS: This is a 37-year-old female with left lower lobe pneumonia who did not respond to 5 days of Levaquin and she has been on 3 more days of IV antibiotics. Clinically, she is getting better; however, the patient is immunosuppressed with Humira for her Crohn's disease. We are suspicious that an opportunistic infection maybe present. She also recently traveled to [place]. This is where she got sick. On 05/21/2018, the patient underwent an uncomplicated bronchoscopy and an uncomplicated endobronchial ultrasound with biopsy. We got good lymph node samples from the level 7, right level 4, and left level 10 areas. I did not see any endobronchial lesions. We did 2 washings, not only from the mainstem bronchi as there was speed in there when we initially entered, but also the left lower lobe bronchus. I specifically went out into the sub-segmental bronchi and saw no obstructing lesions. Really, she did not have any occlusive mucus. She tolerated well. DESCRIPTION OF PROCEDURE: The patient was brought to the operating room and laid in supine position. General anesthesia with the addition of endotracheal intubation was performed with an 8.5 endotracheal tube. After appropriate time-out had been called and her antibiotics have been infused, the endobronchial ultrasound scope was placed in the adaptor. Upon entering the trachea, there was some brownish sputum, which was more so in the left than the right, but was actually in the distal trachea. We did some washings and suctioned this out and sent this for culture. After inspecting the airways, I saw no endobronchial lesions. She really did not have much more mucus in the left side. The ultrasound was then engaged and she had a large subcarinal node. I was concerned about this appearance on the CT scan. We biopsied this several times and got good with lymph node tissue. No granulomas or evidence of malignancy were seen on the rapid onsite evaluation. The patient was then turned towards the right level 4 area. Again, we were able to access this fairly easily and got lymph node tissue. This node was not overly large. The left level 10 node was large, however. We biopsied this several times and got good lymph node biopsies from this. We had very little in the way of bleeding. The endobronchial ultrasound scope was then removed and a Fiberoptic scope was placed. I closely inspected each of the airways and then went down into left lower lobe and did washings at the left lower lobe bronchi. I did not see any specific lesions nor did I see any obstructing sputum. There was no bleeding when we finished, we slowly removed the bronchoscope. She tolerated it quite well and was extubated in the room. I attest to the content of the Intraoperative Record and any orders documented therein. Any exception s are noted below.
[2018-05-21] MEDS ORDERED: VANCOMYCIN IV 1,250 MG in SODIUM CHLORIDE 0.9% 250ML 250 ML IV SCH (22:00)
--- NOTE | 2018-05-21 22:01 | DIAGNOSTIC IMAGING REPORT ---
CHEST ONE VIEW PORTABLE CLINICAL HISTORY: Back pain, Crackles. COMPARISON STUDY: Chest CT May 17, 2018 and chest radiograph performed earlier today. FINDINGS: There is no pneumothorax. No pleural effusion is visualized. Left lower lung consolidation persists. There is no evidence for pulmonary edema. Cardiomediastinal silhouette is stable. Left hilar fullness is noted. This corresponds to lymphadenopathy by chest CT. IMPRESSION: Persistent left lower lung consolidation suggestive of pneumonia. Radiographic follow up to ensure resolution is recommended. Electronically signed by: Celso Goodman M.D. 05/21/2018 9:59 PM Dictated Date/Time: 05/21/2018 9:56 PM
[2018-05-21] MEDS: DOXYCYCLINE HYCLATE 100 MG CAP PO SCH (23:07)
[2018-05-22] MEDS ORDERED: GI COCKTAIL PO ONE (01:15)
[2018-05-22] MEDS ORDERED: ALUMINUM/MAGNESIUM SUSP 18 ML, LIDOCAINE HCL 2% VISCOUS SOLN 6 ML, BARCODE IDENTIFIER 1 EA PO ONE ×2 (02:00)
[2018-05-22] MEDS: PIPERACILL/TAZOBAC IV 4.5 GM in D5W 100 ML IV SCH (04:10)
[2018-05-22] MEDS ORDERED: DiphenhydrAMINE HCL 50 MG/ML VIAL IV STA (04:11)
[2018-05-22] MEDS: HEPARIN SOD 5000 UNIT/0.5 ML CARP SQ SCH (05:59)
[2018-05-22 06:19] LABS: CREATININE 1.06 mg/dl (0.60-1.20)
[2018-05-22 07:06] VITALS: PULSE 66; O2SAT 98
[2018-05-22] MEDS: ALBUT/IPRATROP 3MG/0.5MG NEB 3 ML VIAL INH SCH ×2 (07:06→11:24)
[2018-05-22 07:23] VITALS: BP 117/75; PULSE 55; TEMP 37; O2SAT 97
[2018-05-22] MEDS: PANTOprazole SOD 40 MG TAB PO SCH (08:17)
[2018-05-22] MEDS: MoRPHine SULFATE CR 15 MG TAB (MS CONTIN) PO SCH (08:17)
[2018-05-22] MEDS: DOXYCYCLINE HYCLATE 100 MG CAP PO SCH (08:19)
--- NOTE | 2018-05-22 08:49 | Discharge Instructions ---
Discharge Instructions Date of Service May 22, 2018. Admission Reason for Admission: Pneumonia Discharge Discharge Diagnosis / Problem: pneumonia Discharge Goals Goal(s): Diagnostic testing, Therapeutic intervention Activity Recommendations Activity Limitations: as noted below Lifting Limitations: gradually increase as tolerated . Current Hospital Diet Patient's current hospital diet: Regular Diet Discharge Diet Recommended Diet: Regular Diet Procedures Procedures Performed: Endobronchial Ultrasound with biopsies & Flexible Bronchoscopy Pending Studies Studies pending at discharge: yes List of pending studies: bronchoscopy samples are being tested Medical Emergencies . Who to Call and When: Medical Emergencies: If at any time you feel your situation is an emergency, please call 911 immediately. . Non-Emergent Contact Non-Emergency issues call your: Primary Care Provider Call Non-Emergent contact if: temperature is above 101, your pain is not controlled . . "Provider Documentation" section prepared by Howard Page. .
[2018-05-22] MEDS: SERTRALINE HCL 100 MG TAB PO SCH (08:52)
[2018-05-22] MEDS ORDERED: ZLF/100 PO ×2 (09:04→11:13)
[2018-05-22] MEDS ORDERED: IPRA1AER2 INH ×2 (09:04→11:13)
[2018-05-22] MEDS ORDERED: DXY100 PO ×2 (09:04→11:13)
--- NOTE | 2018-05-22 09:17 | Anesthesiology Progress Note ---
Anesthesia Post Op Note Date & Time May 22, 2018 at 09:16 Vital Signs Pain Intensity: 0.0 Vital Signs Past 12 Hours Date Time Temp Pulse Resp B/P (MAP) Pulse Ox O2 Delivery O2 Flow Rate FiO2 05/22/18 07:23 37.0 55 16 117/75 (89) 97 05/22/18 07:06 66 16 98 Room Air 05/22/18 00:00 Room Air 05/21/18 22:14 37.2 67 18 108/71 (83) 95 Room Air Notes Mental Status: alert / awake / arousable, participated in evaluation Pt Amnestic to Procedure: Yes Nausea / Vomiting: adequately controlled Pain: adequately controlled Airway Patency, RR, SpO2: stable & adequate BP & HR: stable & adequate Hydration State: stable & adequate Anesthetic Complications: no major complications apparent
[2018-05-22 09:25] VITALS: BP 117/75; PULSE 55; TEMP 37; O2SAT 97
[2018-05-22 11:25] VITALS: PULSE 78; O2SAT 98
--- NOTE | 2018-05-22 16:13 | Discharge Summary ---
Discharge Summary Date of Service May 22, 2018. Discharge Summary Admission Date: May 18, 2018 at 12:56 Discharge Date: May 22, 2018 Discharge Disposition: Home Principal Diagnosis: pneumonia Immunizations: Have You Had Influenza Vaccine: Unknown History of Tetanus Vaccine?: Unknown History of Pneumococcal: Unknown Medication Reconciliation New Medications: Ipratropium-Albuterol (Combivent Respimat) 1 Aer Aer 1 PUFFS INH QID, #1 INH . Doxycycline Hyclate (Doxycycline Hyclate) 100 Mg Cap 100 MG PO BID, #13 CAP . Sertraline HCl (Sertraline HCl) 100 Mg Tab 100 MG PO QAM, #60 TAB . Continued Medications: [Humira] () 40 MG INJ EVERY OTHER WEEK Discharge Exam Review of Systems: Constitutional: No chills, No sweats, No weakness Respiratory: No cough, No sputum, No shortness of breath Cardiovascular: No chest pain, No edema Abdomen: No pain, No nausea Psychiatric: No depression symptoms, No anxiety Physical Exam: General Appearance: WD/WN Eyes: normal inspection, sclerae normal Neck: supple, no JVD Respiratory/Chest: chest non-tender, lungs clear, normal breath sounds Cardiovascular: regular rate, rhythm, no murmur Abdomen / GI: normal bowel sounds, non tender, soft Hospital Course Dyspnea and persistent fevers in a 37 yo female who failed outaptient treatment on levaquin, h/o immunosuppressant treatment of Crohns, treated for pneumonia and improved atypical community acquired pneumonia. Bronchoscopy 05/21 Patient placed on triple antibiotic therapy. complete 10 days of doxycycline as per infectious disease recommendations Patient was admitted with precautions for TB. PPD is negative.-->will stopped airborne precautions. Ordered histoplasma antibodies, antibodies for coccidioidomycosis in outside facility. Will follow up with Dr Galicia. 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 h/o crohns disease, clinically no symptoms on stelara h/o back pain on morphine and dilaudid. H/O SMOKING:quit years ago. Vaginal pruritus fluconazole 150 Heparin for DVT prevention Total Time Spent: Greater than 30 minutes This includes examination of the patient, discharge planning, medication reconciliation, and communication with other providers. Discharge Instructions Please refer to the electronic Patient Visit Report (Discharge Instructions) for additional information.
[2018-05-22] MEDS ORDERED: VANCOMYCIN TROUGH ONE (21:30)
[2018-05-23] MEDS ORDERED: VANCOMYCIN TROUGH ONE (09:30)
== END 2018-05-22 12:15 | disposition home or self-care (01) | DRG 167 ==
LOC: C.4E 12:56
PROVIDERS: ADMIT Internal Medicine Sports Medicine; ATTEND Internal Medicine
PROC: 07B73ZX Excision of Thorax Lymphatic, Percutaneous Approach, Diagnostic (ICD-10-PCS; principal; 2018-05-21 13:00)
PROC: 0B918ZX Drainage of Trachea, Via Natural or Artificial Opening Endoscopic, Diagnostic (ICD-10-PCS; principal; 2018-05-21 13:00)
PROC: 0B9J8ZZ Drainage of Left Lower Lung Lobe, Via Natural or Artificial Opening Endoscopic (ICD-10-PCS; principal; 2018-05-21 13:00)
DX: J18.1 Lobar pneumonia, unspecified organism (principal); K50.90 Crohn's disease, unspecified, without complications; R59.0 Localized enlarged lymph nodes; T45.1X5A Adverse effect of antineoplastic and immunosuppressive drugs, initial encounter; F17.210 Nicotine dependence, cigarettes, uncomplicated; B00.1 Herpesviral vesicular dermatitis; L29.2 Pruritus vulvae; T36.95XA Adverse effect of unspecified systemic antibiotic, initial encounter; M54.9 Dorsalgia, unspecified; E66.9 Obesity, unspecified; Z68.36 Body mass index [BMI] 36.0-36.9, adult; Z98.84 Bariatric surgery status; Z90.49 Acquired absence of other specified parts of digestive tract; Z79.899 Other long term (current) drug therapy